=== PATIENT | female | born 1990 | race Caucasian/White ===

== ENCOUNTER 2017-12-05 15:05 | Inpatient (IN) | payer OTHER ==
[2017-12-05] MEDS ORDERED: SUCCINYLCHOLINE 200 MG/10 ML VIAL. (17:23)
[2017-12-05] MEDS ORDERED: LIDOCAINE 1% PF 30 ML VIAL. INJ (17:30)
[2017-12-05 17:34] LABS: ADD MAN DIFF? NO
[2017-12-05 17:42] LABS: BASO % 0 % (0-3); EOS # 0.1 x10^3/uL (0.0-0.7); EOS % 1 % (0-3); HEMATOCRIT 38.2 % (36.0-47.0); HEMOGLOBIN 13.2 g/dL (12.0-15.5); LYMPH # 2.5 x10^3/uL (1.0-4.8); LYMPH % 23 % (24-48); MEAN CORPUSCULAR HEMOGLOBIN 34 pg (25-35); MEAN CORPUSCULAR HGB CONC 35 g/dL (31-37); MEAN CORPUSCULAR VOLUME 97 fL (79-100); MONO # 0.9 x10^3/uL (0.0-1.1); MONO % 8 % (0-9); NEUT # 7.4 x10^3uL (1.8-7.7); NEUT % 68 % (31-73); PLATELET COUNT 214 x10^3/uL (140-400); RED BLOOD COUNT 3.95 x10^6/uL (3.50-5.40); RED CELL DISTRIBUTION WIDTH 13.3 % (11.5-14.5)
[2017-12-05] MEDS ORDERED: fentaNYL PF VIAL 100 MCG/2 ML VIAL (17:46)
[2017-12-05] MEDS ORDERED: CLINDAMYCIN 900MG PREMIX 50 ML IV (18:00)
[2017-12-05] MEDS ORDERED: SIMETHICONE 80 MG TAB.CHEW PO (18:15)
[2017-12-05] MEDS ORDERED: IBUPROFEN 800 MG TABLET. PO (18:15)
[2017-12-05] MEDS ORDERED: OXYTOCIN 30 UNIT/500 ML PREMIX 500 ML IV (18:15)
[2017-12-05] MEDS ORDERED: ONDANSETRON PF 4 MG/2 ML VIAL. IV (18:15)
[2017-12-05] MEDS ORDERED: 0.9 % SODIUM CHLORIDE 10 ML DISP.SYRIN. IV (18:15)
[2017-12-05] MEDS ORDERED: diphenhydrAMINE ORAL ELIXIR 12.5 MG/5 ML ML PO (18:15)
[2017-12-05] MEDS ORDERED: MAG HYDROX/ALUMINUM HYD/SIMETH 30 ML ORAL.SUSP PO (18:15)
[2017-12-05] MEDS: KETOROLAC 30 MG/ML INJ. IV (18:28)
[2017-12-06] MEDS: KETOROLAC 30 MG/ML INJ. IV (02:33)
[2017-12-06 04:53] LABS: ADD MAN DIFF? NO
[2017-12-06] MEDS: IV RINGERS,LACTATED 1000ML 1,000 ML IV ×3 (05:00→18:00)
[2017-12-06 05:16] LABS: BASO % 0 % (0-3); EOS # 0.1 x10^3/uL (0.0-0.7); EOS % 1 % (0-3); HEMOGLOBIN 10.2 g/dL (12.0-15.5); LYMPH # 2.8 x10^3/uL (1.0-4.8); LYMPH % 23 % (24-48); MEAN CORPUSCULAR HEMOGLOBIN 32 pg (25-35); MEAN CORPUSCULAR HGB CONC 34 g/dL (31-37); MEAN CORPUSCULAR VOLUME 95 fL (79-100); MONO # 1.1 x10^3/uL (0.0-1.1); MONO % 9 % (0-9); NEUT # 7.8 x10^3uL (1.8-7.7); NEUT % 66 % (31-73); PLATELET COUNT 187 x10^3/uL (140-400); RED BLOOD COUNT 3.16 x10^6/uL (3.50-5.40); RED CELL DISTRIBUTION WIDTH 12.9 % (11.5-14.5); WHITE BLOOD COUNT 11.8 x10^3/uL (4.0-11.0)
[2017-12-06] MEDS: FERROUS SULFATE 325 MG TABLET. PO ×2 (08:05→16:47)
[2017-12-06] MEDS: IBUPROFEN 800 MG TABLET. PO ×2 (08:06→15:27)
[2017-12-06] MEDS: DOCUSATE SODIUM 100 MG CAPSULE. PO ×2 (08:06→20:52)
[2017-12-06] MEDS: oxyCODONE/APAP 5/325 1 TAB TABLET PO ×4 (08:08→20:53)
[2017-12-07] MEDS: IV RINGERS,LACTATED 1000ML 1,000 ML IV (02:00)
[2017-12-07] MEDS: IBUPROFEN 800 MG TABLET. PO ×3 (02:19→20:21)
[2017-12-07] MEDS: oxyCODONE/APAP 5/325 1 TAB TABLET PO ×4 (02:22→20:21)
[2017-12-07 03:18] LABS: RPR Non Reactive (Non Reactive)
[2017-12-07] MEDS: DOCUSATE SODIUM 100 MG CAPSULE. PO ×2 (08:46→20:21)
[2017-12-07] MEDS ORDERED: PNEUMOCOCCAL VAX SCREEN BY RX. MC (09:00)
[2017-12-07] MEDS: NICOTINE 7MG PATCH. TD (11:26)
[2017-12-07] MEDS: MAGNESIUM HYDROXIDE 2,400 MG/30 ML ORAL.SUSP. PO (11:26)
[2017-12-07] MEDS: BISACODYL 10 MG SUPP.RECT. PR (16:51)
[2017-12-07] MEDS: ZOLPIDEM 5 MG TABLET. PO (21:31)
[2017-12-08] MEDS: oxyCODONE/APAP 5/325 1 TAB TABLET PO ×4 (00:51→15:07)
[2017-12-08] MEDS: IBUPROFEN 800 MG TABLET. PO ×2 (04:55→13:12)
[2017-12-08] MEDS: FERROUS SULFATE 325 MG TABLET. PO (09:22)
[2017-12-08] MEDS: MAGNESIUM HYDROXIDE 2,400 MG/30 ML ORAL.SUSP. PO (09:22)
[2017-12-08] MEDS: DOCUSATE SODIUM 100 MG CAPSULE. PO (09:22)
[2017-12-08] MEDS: DIPHTH,PERTUSS(ACELL),TET TOX 0.5 ML DISP.SYRIN. VAX IM (14:56)
[2017-12-08] MEDS: PNEUMOC CONJ VACC 23-VALENT 0.5 ML VIAL. VAX IM (15:00)
== END 2017-12-08 18:06 | disposition home or self-care (01) | DRG 766 ==
LOC: 3 SO LND 15:05 → 3 NORTH 21:00
PROC: 10D00Z1 Extraction of Products of Conception, Low, Open Approach (ICD-10-PCS; principal; 2017-12-06)
PROC: 3E0234Z Introduction of Serum, Toxoid and Vaccine into Muscle, Percutaneous Approach (ICD-10-PCS; 2017-12-06)
DX: O34.211 Maternal care for low transverse scar from previous cesarean delivery (principal); O69.2XX0 Labor and delivery complicated by other cord entanglement, with compression, not applicable or unspecified; O76 Abnormality in fetal heart rate and rhythm complicating labor and delivery; Z37.0 Single live birth; Z3A.37 37 weeks gestation of pregnancy; Z23 Encounter for immunization
CPT/HCPCS: 36415; 76819; 85025; 86593; 86850; 86900; 86901; 88307; 90715; 90732; J0330; J1170; J1885; J3010; J7120